=== PATIENT | female | born 1940 | race Hispanic/Latino ===

== ENCOUNTER 2017-07-31 10:14 | Outpatient (CLI) | payer MEDICARE ==
--- NOTE | 2017-07-31 14:37 | Mammography Report ---
BONE DEXA:07/31/17 10:14:00 CLINICAL: Postmenopausal and history of left breast cancer status post mastectomy. No comparison. TECHNIQUE: Two site bone DEXA performed on an Hologic scanner. FINDINGS: The average BMD of the lumbar spine L1-L4 is 0.669g/cm squared with a T-score of -3.4 and a Z-score of -0.8. The average BMD of the left hip is 0.415g/cm squared with a T-score of -4.3 and a Z-score of -2.3. IMPRESSION: WHO classification: Osteoporosis with high fracture risk based on both spine and left hip measurements. RECOMMENDATION: Clinical correlation and routine screening. DEFINITIONS: BMD = Bone Mineral Density T-score = BMD related to mean peak bone mass of young adult (mean expressed in Standard Deviation) Z-score = Age matched BMD expressed in SD World Health Organization (WHO) Diagnostic Criteria Normal T-score > -1 SD Osteopenia T-score between -1 and -2.4 SD Osteoporosis T-score -2.5 SD or below NOTE: BMD is not the only risk factor for fracture. One should also consider factors such as the patient's age, risk of falling, previous osteoporotic fracture, family history of osteoporotic fractures, current smoker, and low body weight. Z-scores are not calculated if >80 years of age.
== END 2017-07-31 10:15 | disposition home or self-care (01) ==
LOC: SPVWC 10:14
PROVIDERS: ATTEND Internal Medicine Hematology & Oncology
DX: M81.0 Age-related osteoporosis without current pathological fracture (principal); D50.9 Iron deficiency anemia, unspecified; E03.9 Hypothyroidism, unspecified; F17.210 Nicotine dependence, cigarettes, uncomplicated; Z78.0 Asymptomatic menopausal state; Z85.3 Personal history of malignant neoplasm of breast; Z90.12 Acquired absence of left breast and nipple
CPT/HCPCS: 77080

== ENCOUNTER 2018-09-19 06:10 | Day surgery (SDC) | payer MEDICARE ==
[2018-09-19] MEDS ORDERED: ECOTRIN PO NR (06:36)
[2018-09-19] MEDS ORDERED: NACL 0.9% 500 ML 500 ML IV SCH (07:00)
[2018-09-19 07:18] LABS: Basophils % (Auto) 0.6 % (0.0-1.8); Eosinophils # (Auto) 0.1 K/mm3 (0.0-0.4); Eosinophils % (Auto) 1.9 % (0.0-4.3); Hematocrit 35.3 % (30.3-42.9); Hemoglobin 11.6 gm/dl (10.1-14.3); Lymphocytes # (Auto) 0.9 K/mm3 (1.2-5.4); Lymphocytes % (Auto) 15.8 % (13.4-35.0); Mean Corpuscular HGB Conc 33 % (30-34); Mean Corpuscular Volume 91 fl (79-97); Monocytes # (Auto) 0.6 K/mm3 (0.0-0.8); Monocytes % (Auto) 9.8 % (0.0-7.3); Platelet Count 208 K/mm3 (140-440); Red Blood Count 3.89 M/mm3 (3.65-5.03); Red Cell Distribution Width 15.3 % (13.2-15.2)
[2018-09-19 07:29] LABS: Partial Thromboplastin Time 27.7 Sec. (24.2-36.6)
[2018-09-19 07:36] LABS: Calcium 9.3 mg/dL (8.4-10.2)
[2018-09-19 07:46] LABS: INR 1.02 (0.87-1.13)
[2018-09-19] MEDS ORDERED: XYLOCAINE 2% INFILTRATI ONE (08:28)
[2018-09-19] MEDS ORDERED: CALAN ONE (08:28)
[2018-09-19] MEDS ORDERED: HEPARIN/NS 5000 UNIT/500ML(CATH LAB) 1,000 ML IR ONE (08:28)
[2018-09-19] MEDS ORDERED: HEPARIN 10,000 UNITS/10 ML ONE (08:28)
[2018-09-19] MEDS ORDERED: NITROGLYCERIN SYRINGE 0 ML ONE (08:28)
[2018-09-19] MEDS ORDERED: SUBLIMAZE ONE (08:29)
[2018-09-19] MEDS ORDERED: VERSED ONE (08:29)
--- NOTE | 2018-09-19 10:43 | Cardiac Catherization Report ---
CARDIAC CATHETERIZATION REPORT INDICATION FOR PROCEDURE: The patient is an 78-year-old white female with history of mitral valve replacement with #25 Crow prosthetic valve along with atrial appendage closure with a 40 mm AtriCure clip in 04/2013, presently having symptoms of shortness of breath on walking short distance and has mildly abnormal stress nuclear imaging. Hence, scheduled for cardiac catheterization for definitive diagnosis and treatment. The patient is aware of the procedure, potential complications and alternatives of therapy available. DESCRIPTION OF PROCEDURE: The patient was brought to the catheterization laboratory in a fasting condition. The right wrist area and forearm thoroughly cleansed with Betadine solution. The patient was evaluated for moderate sedation and was found to be appropriate candidate for sedation. Received IV Versed and fentanyl starting at 9:15 a.m. She was continuously monitored with pulse oximetry, EKG and hemodynamic monitoring throughout the sedation. Next, right radial artery puncture was made using 21-gauge arterial puncture needle. A 5-Turkish slender sheath was introduced. A 5-Turkish multipurpose catheter was used to obtain the angiograms of the left coronary artery in multiple views followed by changing the multipurpose catheter with 6-Turkish JR4 catheter and angiograms of the right coronary artery were obtained. This catheter was exchanged with 6-Turkish pigtail catheter, which was introduced into the left ventricle and left ventriculogram was performed using power injector at 30 mL, 10 mL per second. At the end of the procedure, pressures were measured during the pullback from the left ventricle into the aorta. Pigtail catheter was pulled out over the wire and radial band was applied for good hemostasis. The patient tolerated the procedure well. No untoward complications were noted. The patient tolerated the moderate sedation well and monitoring of the moderate sedation ended at 9:42 a.m. The patient was transferred to the room in stable condition. No hematoma noted in the right radial area. Following findings were noted: HEMODYNAMICS: 1. Opening aortic pressure 149/48. Left ventricular pressure 150/17. No gradient across the aortic valve. Estimated ejection fraction 55-60%. 2. Left ventriculogram done in QUIÑONES projection showed normal sized left ventricle with excellent contractility. End-diastolic and end-systolic volumes are normal. No mitral regurgitation was noted. 3. Right coronary artery dominant vessel. It is angiographically smooth and normal. 4. Left coronary artery arises normally from left coronary cusp. Left main is smooth and normal. LAD is very tortuous and its branches show only very mild irregularities. Circumflex artery and its branch are angiographically smooth and normal. FINAL IMPRESSION: 1. Normal sized left ventricle with normal contractility. No evidence of mitral regurgitation. 2. Essentially normal coronary artery with very mild irregularities of the LAD. 3. Right radial artery was used for access and no complications noted. 4. The patient tolerated the moderate sedation well. At this time, the patient has a normally functioning bioprosthetic mitral valve, no significant coronary disease was documented. Considering the above, the patient will be continued on risk factor modification. Etiology of her shortness of breath and tiredness is not clear. Findings were explained to the patient and her daughter in detail. They understand. [facility]# [id number] STEPHY/KENNEDY GARCIA
[2018-09-19] MEDS ORDERED: NORCO 5/325 PO ONE (11:30)
[2018-09-19 11:32] VITALS: BP 122/43
--- NOTE | 2018-09-19 11:55 | Short Stay Summary ---
Short Stay Documentation Date of service: 09/19/18 - History H&P: obtained from office - Allergies and Medications Current Medications: Allergies diltiazem [From Cardizem] Allergy (Unverified 09/19/18 06:11) Rash,FEVER Home Medications Medication Instructions Recorded Confirmed Last Taken Type Furosemide 20 mg PO DAILY 03/29/13 09/19/18 09/18/18 History 20mg Amiodarone HCl [Pacerone 400 MG 100 mg PO BID 09/19/18 09/19/18 09/18/18 History TAB] 100mg ISOSORBIDE MONOnitrate [Imdur ER] 30 mg PO DAILY 09/19/18 09/19/18 09/18/18 History 30mg Levothyroxine [Synthroid] 150 mcg PO DAILY 09/19/18 09/19/18 09/18/18 History 150mcg Meclizine [Antivert] 25 mg PO PRN PRN 09/19/18 09/19/18 08/02/18 10:00 History 25mg Metoprolol [Lopressor TAB] 25 mg PO BID 09/19/18 09/19/18 09/18/18 History 25mg Pravastatin [Pravachol] 40 mg PO DAILY 09/19/18 09/19/18 09/18/18 History 40mg Vitamin D3 1,000 UNIT TAB 1,000 mg PO DAILY 09/19/18 09/19/18 09/18/18 History 1000 mg Warfarin [Coumadin] 2.5 mg PO DAILY 09/19/18 09/19/18 09/11/18 History 2.5mg amLODIPine [Norvasc] 5 mg PO DAILY 09/19/18 09/19/18 09/18/18 History 5mg Active Medications Sodium Chloride (Nacl 0.9% 500 Ml) 500 mls @ 50 mls/hr IV DIRECT CASSIDY Stop: 09/19/18 16:59 Last Admin: 09/19/18 07:00 Dose: 50 mls/hr Documented by: - Brief post op/procedure progress note Date of procedure: 09/19/18 Pre-op diagnosis: abnormal stress test Post-op diagnosis: same Procedure: LHC - see dictated cath report Anesthesia: local Estimated blood loss: none Condition: stable - Disposition Condition at discharge: Good Disposition: [id number] TO HOME OR SELFCARE - Discharge Diagnoses (1) History of mitral valve replacement Status: Chronic (2) Abnormal stress test Status: Chronic Short Stay Discharge Plan Activity: advance as tolerated Diet: low fat, low cholesterol, low salt Wound: open to air, keep clean and dry, per your surgeon's advice Follow up with: NAY SANCHEZ MD [Staff Physician] - 7 Days JOSEPH DONOVAN DO [Primary Care Provider] - 7 Days Forms: CardCath PCI D/C Instructions
== END 2018-09-19 14:15 | disposition home or self-care (01) ==
LOC: CATHLABREC 06:10
PROVIDERS: ATTEND Internal Medicine
DX: R07.9 Chest pain, unspecified (principal); R94.39 Abnormal result of other cardiovascular function study; I11.0 Hypertensive heart disease with heart failure; I50.9 Heart failure, unspecified; E78.00 Pure hypercholesterolemia, unspecified; I48.91 Unspecified atrial fibrillation; M81.0 Age-related osteoporosis without current pathological fracture; E03.9 Hypothyroidism, unspecified; Z79.899 Other long term (current) drug therapy; Z79.01 Long term (current) use of anticoagulants; Z95.2 Presence of prosthetic heart valve; Z85.3 Personal history of malignant neoplasm of breast; Z90.12 Acquired absence of left breast and nipple; Z98.890 Other specified postprocedural states; Z88.8 Allergy status to other drugs, medicaments and biological substances
CPT/HCPCS: 36415; 80048; 85025; 85610; 85730; 93005; 93010; 93458; 99156; 99157; C1894; J1644; J2250; J3010; J7040; Q9967